=== PATIENT | male | born 1945 | race Caucasian/White ===

== ENCOUNTER 2016-10-26 20:27 | Inpatient (IN) | payer MEDICARE, OTHER ==
[~2016-10-26] VITALS: Ht 177.8 cm; Wt 88.5 kg
[2016-10-26 21:03] LABS: Basophils # (auto) 0 uL; Basophils % (auto) 0.6 % (0.0-2.0); Eosinophils # (auto) 0.1 uL; Eosinophils % (auto) 2.3 % (0.0-7.0); Hematocrit 30.5 % (41.0-53.0); Hemoglobin 10.2 g/dL (13.5-17.5); Lymphocytes # (auto) 1.2 uL; Mean Corpuscular Hemoglobin 28.3 pg (28.0-32.0); Mean Corpuscular Hgb Conc. 33.3 g/dL (32.0-36.0); Mean Platelet Volume 5.9 fL (7.4-10.4); Monocytes # (auto) 0.5 uL; Monocytes % (auto) 7.4 % (0.0-12.0); Neutrophils # (auto) 4.3 uL; Neutrophils % (auto) 69.7 % (37.0-80.0); Platelet Count (auto) 432 10^3/uL (140-450); Red Cell Distribution Width 18.3 % (11.6-16.0); White Blood Cell 6.2 10^3/uL (4.4-10.8)
[2016-10-26] MEDS ORDERED: SODIUM CHLORIDE 0.9% 1,000 ML IV ONE (21:15)
[2016-10-26 21:19] LABS: Albumin 2.4 g/dL (3.4-5.0); Anion Gap 10 (5-15); Aspartate Aminotransferase 88 U/L (15-37); BUN/Creatinine Ratio 14.6; Blood Urea Nitrogen 12 mg/dL (7-18); Calcium 8.5 mg/dL (8.5-10.1); Carbon Dioxide 24 mmol/L (21-32); Chloride 103 mmol/L (98-107); GFR African American 119 mL/min; GFR Non-African American 98 mL/min; Glucose 108 mg/dL (74-106); Potassium 4.4 mmol/L (3.5-5.1); Sodium 137 mmol/L (136-145)
[2016-10-26 21:24] LABS: Alkaline Phosphatase 350 U/L (45-117); Bilirubin, Total 0.2 mg/dL (0.2-1.0); Total Protein 6.8 g/dL (6.4-8.2)
[2016-10-27] VITALS (7 sets, daily range): BP systolic 119–153; BP diastolic 69–77
[2016-10-27] MEDS ORDERED: TEMAZEPAM 15 MG CAP PO PRN (02:30)
[2016-10-27] MEDS ORDERED: ONDANSETRON HCL 4 MG/2 ML VIAL IV PRN (02:30)
[2016-10-27] MEDS ORDERED: ONDANSETRON HCL 4 MG/2 ML VIAL IV ONE (02:30)
[2016-10-27] MEDS ORDERED: DOCUSATE SOD 100 MG CAP PO PRN (02:30)
[2016-10-27] MEDS ORDERED: MORPHINE SULFATE 4 MG/ML SYRG IV ONE (02:30)
[2016-10-27] MEDS ORDERED: HYDROcodone-ACET 5/325MG TAB PO PRN (02:30)
[2016-10-27] MEDS ORDERED: ACETAMINOPHEN 325 MG TAB PO PRN (02:30)
[2016-10-27] MEDS: SODIUM CHLORIDE 0.9% 1,000 ML IV SCH ×2 (03:08→19:28)
[2016-10-27] MEDS: MORPHINE SULF INJ 2 MG/ML SYRINGE 1ML IV PRN (04:37)
[2016-10-27 05:30] LABS: Urine Bilirubin Negative (Negative); Urine Blood TRACE /uL (Negative); Urine Color Yellow (Yellow); Urine Glucose Normal (Normal); Urine Ketone Negative (Negative); Urine Mucus FEW (None Seen); Urine Nitrite Negative (Negative); Urine RBC 2 /hpf (0 - 3); Urine Urobilinogen Normal (Negative); Urine pH 5.5 (5.0-8.0)
[2016-10-27] MEDS: SODIUM CHLOR 0.9% PF (SALINE LOCK) 10ML VIAL IV SCH ×3 (06:18→22:42)
[2016-10-27] MEDS ORDERED: ASPirin 81 mg TAB PO ONE (06:45)
[2016-10-27] MEDS ORDERED: MORPHINE SULF INJ 2 MG/ML SYRINGE 1ML IV ONE (06:45)
[2016-10-27 08:09] LABS: Basophils # (auto) 0 uL; Basophils % (auto) 0.3 % (0.0-2.0); Eosinophils # (auto) 0.2 uL; Eosinophils % (auto) 2.9 % (0.0-7.0); Hematocrit 29.1 % (41.0-53.0); Hemoglobin 9.8 g/dL (13.5-17.5); Lymphocytes # (auto) 1.4 uL; Lymphocytes % (auto) 23.8 % (10.0-50.0); Mean Corpuscular Hemoglobin 28.3 pg (28.0-32.0); Mean Corpuscular Hgb Conc. 33.4 g/dL (32.0-36.0); Mean Corpuscular Volume 84.6 fL (80.0-100.0); Mean Platelet Volume 6.1 fL (7.4-10.4); Monocytes # (auto) 0.4 uL; Monocytes % (auto) 6.7 % (0.0-12.0); Neutrophils # (auto) 3.9 uL; Neutrophils % (auto) 66.3 % (37.0-80.0); Platelet Count (auto) 412 10^3/uL (140-450); Red Cell Distribution Width 18.5 % (11.6-16.0); White Blood Cell 5.9 10^3/uL (4.4-10.8)
[2016-10-27 08:33] LABS: Anion Gap 7 (5-15); BUN/Creatinine Ratio 11.4; Blood Urea Nitrogen 9 mg/dL (7-18); Carbon Dioxide 27 mmol/L (21-32); Chloride 103 mmol/L (98-107); GFR African American 124 mL/min; Glucose 108 mg/dL (74-106); Potassium 4.2 mmol/L (3.5-5.1); Sodium 137 mmol/L (136-145)
[2016-10-27 08:34] LABS: Albumin 2.5 g/dL (3.4-5.0); Alkaline Phosphatase 378 U/L (45-117); Aspartate Aminotransferase 111 U/L (15-37); Bilirubin, Total 0.3 mg/dL (0.2-1.0); Calcium 8.4 mg/dL (8.5-10.1); GFR Non-African American 103 mL/min; Total Protein 6.7 g/dL (6.4-8.2)
[2016-10-27] MEDS ORDERED: QUET50TA PO (09:14)
[2016-10-27] MEDS ORDERED: DOCU100T15 PO (09:14)
[2016-10-27] MEDS ORDERED: LAMO150T26 PO (09:14)
[2016-10-27] MEDS ORDERED: TERA2CAP45 PO (09:14)
[2016-10-27] MEDS ORDERED: AMLO10TA2 PO (09:14)
[2016-10-27] MEDS ORDERED: OMEP20CA74 PO (09:14)
[2016-10-27] MEDS ORDERED: OMEG300C7 OR (09:14)
[2016-10-27] MEDS ORDERED: BUSP5TAB51 PO (09:14)
[2016-10-27] MEDS ORDERED: VITA100072 PO (09:14)
[2016-10-27] MEDS ORDERED: LOSA50TA6 PO (09:14)
[2016-10-27] MEDS ORDERED: ALBUAER3 IN (09:14)
[2016-10-27] MEDS ORDERED: SIMV10TA84 PO (09:14)
[2016-10-27] MEDS ORDERED: TEMA30CA PO (09:14)
[2016-10-27] MEDS: FAMOTIDINE 20 MG TAB PO SCH ×2 (11:38→22:43)
[2016-10-27] MEDS: MULTIPLE VITAMIN TAB PO SCH (11:38)
[2016-10-27] MEDS: TERAZOSIN HCL 5 MG CAP PO SCH (22:42)
[2016-10-27] MEDS: busPIRone HCL 10 MG TAB PO SCH (22:42)
[2016-10-27] MEDS: QUEtiapine FUMARATE 25 MG TAB PO SCH (22:43)
[2016-10-27] MEDS: lamoTRIgine 100 MG TAB PO SCH (22:44)
[2016-10-28 04:58] VITALS: BP 120/67
[2016-10-28] MEDS ORDERED: QUET100T46 PO (05:32)
[2016-10-28] MEDS: SODIUM CHLOR 0.9% PF (SALINE LOCK) 10ML VIAL IV SCH ×3 (05:52→22:54)
[2016-10-28 06:44] LABS: Basophils # (auto) 0 uL; Basophils % (auto) 0.4 % (0.0-2.0); Eosinophils # (auto) 0.1 uL; Eosinophils % (auto) 2.7 % (0.0-7.0); Hematocrit 28.9 % (41.0-53.0); Hemoglobin 9.7 g/dL (13.5-17.5); Lymphocytes % (auto) 20.2 % (10.0-50.0); Mean Corpuscular Hemoglobin 28.4 pg (28.0-32.0); Mean Corpuscular Hgb Conc. 33.7 g/dL (32.0-36.0); Mean Corpuscular Volume 84.4 fL (80.0-100.0); Mean Platelet Volume 6.2 fL (7.4-10.4); Monocytes # (auto) 0.4 uL; Monocytes % (auto) 7.8 % (0.0-12.0); Neutrophils # (auto) 3.3 uL; Neutrophils % (auto) 68.9 % (37.0-80.0); Platelet Count (auto) 393 10^3/uL (140-450); Red Cell Distribution Width 18.5 % (11.6-16.0); White Blood Cell 4.8 10^3/uL (4.4-10.8)
[2016-10-28 06:50] LABS: INR 1.06 (0.9-1.15); Partial Thromboplastin Time 29.5 sec (22.64-33.71); Prothrombin Time 11.6 sec (9.37-12.3)
[2016-10-28 07:16] LABS: Albumin 2.4 g/dL (3.4-5.0); BUN/Creatinine Ratio 10.7; Bilirubin, Total 0.3 mg/dL (0.2-1.0); Calcium 8.3 mg/dL (8.5-10.1); Potassium 3.8 mmol/L (3.5-5.1); Total Protein 6.7 g/dL (6.4-8.2)
[2016-10-28 08:00] VITALS: BP 143/69
[2016-10-28 08:39] VITALS: BP 125/71
[2016-10-28] MEDS: busPIRone HCL 10 MG TAB PO SCH ×2 (10:33→22:57)
[2016-10-28] MEDS: FAMOTIDINE 20 MG TAB PO SCH ×2 (10:33→22:57)
[2016-10-28] MEDS: MULTIPLE VITAMIN TAB PO SCH (10:33)
[2016-10-28] MEDS: lamoTRIgine 100 MG TAB PO SCH ×2 (10:33→22:58)
[2016-10-28] MEDS: LACTULOSE 20Gm/30ML SOLN PO SCH ×2 (13:25→17:34)
[2016-10-28] MEDS: SODIUM CHLORIDE 0.9% 1,000 ML IV SCH (13:25)
[2016-10-28 13:45] VITALS: BP 120/62
[2016-10-28 17:08] VITALS: BP 140/79
[2016-10-28] MEDS: CIPROFLOXACIN 0.3%OPTH(EYE) SOL 5ML LEFTEYE SCH ×3 (18:19→22:54)
[2016-10-28 22:00] VITALS: BP 144/72
[2016-10-28] MEDS: TERAZOSIN HCL 5 MG CAP PO SCH (22:57)
[2016-10-28] MEDS: QUEtiapine FUMARATE 25 MG TAB PO SCH (22:58)
[2016-10-29] MEDS: CIPROFLOXACIN 0.3%OPTH(EYE) SOL 5ML LEFTEYE SCH ×12 (00:26→22:43)
[2016-10-29] MEDS: SODIUM CHLORIDE 0.9% 1,000 ML IV SCH ×2 (04:18→22:39)
[2016-10-29 05:42] VITALS: BP 134/76
[2016-10-29] MEDS: LACTULOSE 20Gm/30ML SOLN PO SCH ×4 (05:59→18:00)
[2016-10-29] MEDS: SODIUM CHLOR 0.9% PF (SALINE LOCK) 10ML VIAL IV SCH ×3 (05:59→22:00)
[2016-10-29 09:00] VITALS: BP 144/90
[2016-10-29] MEDS: MULTIPLE VITAMIN TAB PO SCH (09:45)
[2016-10-29] MEDS: busPIRone HCL 10 MG TAB PO SCH ×2 (09:45→22:41)
[2016-10-29] MEDS: lamoTRIgine 100 MG TAB PO SCH ×2 (09:45→22:41)
[2016-10-29] MEDS: FAMOTIDINE 20 MG TAB PO SCH ×2 (09:46→22:41)
[2016-10-29 11:06] LABS: Kappa Lite Chain Free Serum 16.09 mg/L (3.30-19.40); Lambda Lite Chains Free Serum 13.06 mg/L (5.71-26.30)
[2016-10-29 13:00] VITALS: BP 121/72
[2016-10-29 17:00] VITALS: BP 135/73
[2016-10-29] MEDS ORDERED: LACTULOSE 20Gm/30ML SOLN PO PRN (18:45)
[2016-10-29 22:06] VITALS: BP 151/71
[2016-10-29] MEDS: QUEtiapine FUMARATE 25 MG TAB PO SCH (22:40)
[2016-10-29] MEDS: DOCUSATE SOD 100 MG CAP PO SCH (22:40)
[2016-10-29] MEDS: TERAZOSIN HCL 5 MG CAP PO SCH (22:42)
[2016-10-30] MEDS: CIPROFLOXACIN 0.3%OPTH(EYE) SOL 5ML LEFTEYE SCH ×12 (02:51→22:00)
[2016-10-30 05:06] VITALS: BP 136/77
[2016-10-30] MEDS: SODIUM CHLOR 0.9% PF (SALINE LOCK) 10ML VIAL IV SCH ×3 (05:56→22:00)
[2016-10-30 08:00] VITALS: BP 123/69
[2016-10-30] MEDS: DOCUSATE SOD 100 MG CAP PO SCH ×2 (08:39→23:39)
[2016-10-30] MEDS: lamoTRIgine 100 MG TAB PO SCH ×2 (08:40→23:42)
[2016-10-30] MEDS: busPIRone HCL 10 MG TAB PO SCH ×2 (08:40→23:39)
[2016-10-30] MEDS: FAMOTIDINE 20 MG TAB PO SCH ×2 (08:40→23:39)
[2016-10-30] MEDS: MULTIPLE VITAMIN TAB PO SCH (08:40)
[2016-10-30 12:00] VITALS: BP 139/66
[2016-10-30] MEDS: SODIUM CHLORIDE 0.9% 1,000 ML IV SCH (13:48)
[2016-10-30 17:00] VITALS: BP 150/71
[2016-10-30 20:00] VITALS: BP 138/77
[2016-10-30 20:14] VITALS: BP 138/77
[2016-10-30] MEDS: QUEtiapine FUMARATE 25 MG TAB PO SCH (23:40)
[2016-10-30] MEDS: TERAZOSIN HCL 5 MG CAP PO SCH (23:44)
[2016-10-31] MEDS: CIPROFLOXACIN 0.3%OPTH(EYE) SOL 5ML LEFTEYE SCH ×13 (02:00→22:00)
[2016-10-31 04:47] VITALS: BP 107/58
[2016-10-31] MEDS: SODIUM CHLOR 0.9% PF (SALINE LOCK) 10ML VIAL IV SCH ×3 (06:00→22:18)
[2016-10-31 06:51] LABS: Albumin 2.4 g/dL (3.4-5.0); BUN/Creatinine Ratio 8.3; Bilirubin, Total 0.3 mg/dL (0.2-1.0); Calcium 8.4 mg/dL (8.5-10.1); Total Protein 6.5 g/dL (6.4-8.2)
[2016-10-31 08:30] VITALS: BP 138/62
[2016-10-31] MEDS: SODIUM CHLORIDE 0.9% 1,000 ML IV SCH ×2 (08:37→22:18)
[2016-10-31] MEDS: FAMOTIDINE 20 MG TAB PO SCH ×2 (09:59→21:47)
[2016-10-31] MEDS: DOCUSATE SOD 100 MG CAP PO SCH ×2 (09:59→21:44)
[2016-10-31] MEDS: MULTIPLE VITAMIN TAB PO SCH (09:59)
[2016-10-31] MEDS: lamoTRIgine 100 MG TAB PO SCH ×2 (10:00→21:47)
[2016-10-31] MEDS: busPIRone HCL 10 MG TAB PO SCH ×2 (10:00→21:53)
[2016-10-31 12:00] VITALS: BP 157/73
[2016-10-31 17:30] VITALS: BP 159/67
[2016-10-31 20:00] VITALS: BP 152/91
[2016-10-31] MEDS: QUEtiapine FUMARATE 25 MG TAB PO SCH (21:44)
[2016-10-31] MEDS: TERAZOSIN HCL 5 MG CAP PO SCH (21:51)
[2016-10-31 22:00] VITALS: BP 152/91
[2016-10-31] MEDS: MORPHINE SULF INJ 2 MG/ML SYRINGE 1ML IV PRN (22:14)
[2016-11-01 01:15] LABS: Prostate Specific Antigen 456.5 ng/mL (0.0-4.0)
[2016-11-01] MEDS: CIPROFLOXACIN 0.3%OPTH(EYE) SOL 5ML LEFTEYE SCH ×12 (02:00→22:04)
[2016-11-01 02:06] LABS: PSA Free 31.99 ng/mL
[2016-11-01 05:30] VITALS: BP 130/72
[2016-11-01] MEDS: SODIUM CHLOR 0.9% PF (SALINE LOCK) 10ML VIAL IV SCH ×3 (06:34→22:01)
[2016-11-01 08:00] VITALS: BP 123/78
[2016-11-01] MEDS: lamoTRIgine 100 MG TAB PO SCH ×2 (10:22→22:03)
[2016-11-01] MEDS: DOCUSATE SOD 100 MG CAP PO SCH ×2 (10:22→22:02)
[2016-11-01] MEDS: MULTIPLE VITAMIN TAB PO SCH (10:22)
[2016-11-01] MEDS: FAMOTIDINE 20 MG TAB PO SCH ×2 (10:22→22:02)
[2016-11-01] MEDS: busPIRone HCL 10 MG TAB PO SCH ×2 (10:22→22:02)
[2016-11-01 13:00] VITALS: BP 134/67
[2016-11-01] MEDS: CIPROFLOXACIN 400MG/200ML 200 ML IV SCH ×2 (14:39→22:01)
[2016-11-01 17:00] VITALS: BP 144/74
[2016-11-01 22:00] VITALS: BP 116/76
[2016-11-01] MEDS: TERAZOSIN HCL 5 MG CAP PO SCH (22:02)
[2016-11-01] MEDS: QUEtiapine FUMARATE 25 MG TAB PO SCH (22:03)
[2016-11-02] MEDS: CIPROFLOXACIN 0.3%OPTH(EYE) SOL 5ML LEFTEYE SCH ×11 (02:00→22:00)
[2016-11-02 05:30] VITALS: BP 125/78
[2016-11-02] MEDS ORDERED: ceFAZolin 1GM/50ML D5W 50 ML IV ONE (06:53)
[2016-11-02] MEDS ORDERED: fentaNYL CITRATE 100 MCG/2 ML VL ONE (07:23)
[2016-11-02] MEDS ORDERED: MIDAZOLAM HCL 1MG/1ML-2 ML VIAL ONE (07:23)
[2016-11-02] MEDS ORDERED: PROPOFOL 10 MG/ML 20 ML IV ONE (07:44)
[2016-11-02] MEDS ORDERED: MORPHINE SULF INJ 2 MG/ML SYRINGE 1ML IV PRN (08:00)
[2016-11-02] MEDS ORDERED: MIDAZOLAM HCL 1MG/1ML-2 ML VIAL IV PRN (08:00)
[2016-11-02] MEDS ORDERED: HYDROmorphone HCL 2 MG/ML VL IV PRN (08:00)
[2016-11-02] MEDS ORDERED: ePHEDrine SULFATE 50 MG/ML AMP IV PRN (08:00)
[2016-11-02] MEDS ORDERED: ONDANSETRON HCL 4 MG/2 ML VIAL IV ONE (08:00)
[2016-11-02] MEDS ORDERED: LABETALOL HCL 5 MG/ML 4ML SYRINGE IV PRN (08:00)
[2016-11-02] MEDS ORDERED: KETOROLAC TROMETH 30 MG/ML 1ML VIAL IV ONE (08:00)
[2016-11-02] MEDS ORDERED: hydrALAZINE HCL 20 MG/ML VL IV PRN (08:00)
[2016-11-02 09:00] VITALS: BP 144/82
[2016-11-02] MEDS: DOCUSATE SOD 100 MG CAP PO SCH ×2 (10:15→19:54)
[2016-11-02] MEDS: MULTIPLE VITAMIN TAB PO SCH (10:15)
[2016-11-02] MEDS: busPIRone HCL 10 MG TAB PO SCH ×2 (10:16→19:54)
[2016-11-02] MEDS: FAMOTIDINE 20 MG TAB PO SCH ×2 (10:17→19:54)
[2016-11-02] MEDS: lamoTRIgine 100 MG TAB PO SCH ×2 (10:17→19:54)
[2016-11-02] MEDS: CIPROFLOXACIN 400MG/200ML 200 ML IV SCH ×2 (11:20→19:53)
[2016-11-02 13:00] VITALS: BP 143/80
[2016-11-02] MEDS: SODIUM CHLOR 0.9% PF (SALINE LOCK) 10ML VIAL IV SCH ×2 (14:00→19:55)
[2016-11-02 17:00] VITALS: BP 131/76
[2016-11-02] MEDS ORDERED: DEXAMETHASONE SOD PHOS 10MG/1ML VIAL INJ IV ONE (17:15)
[2016-11-02] MEDS: QUEtiapine FUMARATE 25 MG TAB PO SCH (19:54)
[2016-11-02] MEDS: TERAZOSIN HCL 5 MG CAP PO SCH (19:54)
[2016-11-02 22:00] VITALS: BP 138/76
[2016-11-03] MEDS: CIPROFLOXACIN 0.3%OPTH(EYE) SOL 5ML LEFTEYE SCH ×7 (02:00→12:49)
[2016-11-03 05:00] VITALS: BP 116/66
[2016-11-03] MEDS: SODIUM CHLOR 0.9% PF (SALINE LOCK) 10ML VIAL IV SCH (05:51)
[2016-11-03 09:00] VITALS: BP 135/76
[2016-11-03] MEDS: CIPROFLOXACIN 400MG/200ML 200 ML IV SCH (09:14)
[2016-11-03] MEDS: MULTIPLE VITAMIN TAB PO SCH (09:14)
[2016-11-03] MEDS: FAMOTIDINE 20 MG TAB PO SCH (09:15)
[2016-11-03] MEDS: lamoTRIgine 100 MG TAB PO SCH (09:15)
[2016-11-03] MEDS: busPIRone HCL 10 MG TAB PO SCH (09:15)
[2016-11-03] MEDS: DOCUSATE SOD 100 MG CAP PO SCH (09:16)
[2016-11-03 11:46] VITALS: BP 135/71
== END 2016-11-03 13:25 | disposition home or self-care (01) | DRG 715 ==
LOC: ER 20:27 → TELE 20:28 → TELE-CENTR 10-27 04:26
PROVIDERS: ADMIT Emergency Medicine; ATTEND Internal Medicine
PROC: 0VB00ZX Excision of Prostate, Open Approach, Diagnostic (ICD-10-PCS; principal; 2016-11-02 07:15)
DX: C61 Malignant neoplasm of prostate (principal); C79.51 Secondary malignant neoplasm of bone; C34.90 Malignant neoplasm of unspecified part of unspecified bronchus or lung; E44.0 Moderate protein-calorie malnutrition; G95.89 Other specified diseases of spinal cord; N40.0 Benign prostatic hyperplasia without lower urinary tract symptoms; K59.00 Constipation, unspecified; J44.9 Chronic obstructive pulmonary disease, unspecified; I10 Essential (primary) hypertension; D64.9 Anemia, unspecified; K75.9 Inflammatory liver disease, unspecified; F25.0 Schizoaffective disorder, bipolar type; M19.90 Unspecified osteoarthritis, unspecified site; Z80.1 Family history of malignant neoplasm of trachea, bronchus and lung; Z68.28 Body mass index [BMI] 28.0-28.9, adult
CPT/HCPCS: 36415; 74176; 76705; 77074; 78306; 80053; 80074; 81001; 82232; 82378; 82550; 82553; 82784; 83615; 83690; 83883; 84154; 84484; 85025; 85610; 85730; 86334; 93005; 96361; 96374; 96375; 97163; J0690; J1100; J2250; J2405; J2704

== ENCOUNTER 2017-01-01 14:23 | Emergency (ER) | payer MEDICARE, OTHER ==
[~2017-01-01] VITALS: Ht 177.8 cm; Wt 84.8 kg
[~2017-01-01 14:23] MED LIST: ALBUAER3 IN; AMLO10TA2 PO; BUSP5TAB51 PO; DOCU100T15 PO; LAMO150T26 PO; LOSA50TA6 PO; OMEG300C7 OR; OMEP20CA74 PO; QUET100T46 PO; SIMV10TA84 PO; TEMA30CA PO; TERA2CAP45 PO; VITA100072 PO
[2017-01-01 15:14] VITALS: BP 184/83
== END 2017-01-01 15:35 | disposition left against medical advice (07) ==
LOC: ER 14:24
DX: R51 Headache (principal); Z53.21 Procedure and treatment not carried out due to patient leaving prior to being seen by health care provider; Y08.89XA Assault by other specified means, initial encounter; Y93.89 Activity, other specified; Y99.8 Other external cause status; Y92.89 Other specified places as the place of occurrence of the external cause

== ENCOUNTER 2017-01-02 10:39 | Emergency (ER) | payer MEDICARE, OTHER ==
[~2017-01-02] VITALS: Ht 177.8 cm; Wt 85.3 kg
[2017-01-02 10:49] VITALS: BP 180/88
== END 2017-01-02 15:40 | disposition left against medical advice (07) ==
LOC: ER 10:39
DX: T78.49XA Other allergy, initial encounter (principal); Y08.89XA Assault by other specified means, initial encounter; Y93.89 Activity, other specified; Y99.8 Other external cause status; Y92.89 Other specified places as the place of occurrence of the external cause; Z53.21 Procedure and treatment not carried out due to patient leaving prior to being seen by health care provider